=== PATIENT | female | born 1980 | race Caucasian/White ===

== ENCOUNTER 2021-06-16 11:45 | Day surgery (SDC) | payer BC ==
[2021-06-12 11:12] VITALS: BMI 29.0
[~2021-06-16 11:45] MED LIST: CLINDAMYCIN 900 MG in DEXTROSE 5% IN WATER 50 ML IVPB PRN; DEXAMETHASONE SOD PHOSPHATE 4 MG/ML 1 ML VIAL IV ONE; GENTAMICIN 340 MG in SODIUM CHLORIDE 0.9% 100 ML IVPB PRN; HEPARIN SODIUM,PORCINE/PF 5,000 UNIT/0.5 ML SYRINGE SQ PRN; HYDROmorphone 0.5 MG/0.5 ML SYRINGE IVP PRN; LACTATED RINGERS 1,000 ML IV SCH
[2021-06-16] MEDS ORDERED: LIDOCAINE 1% (10MG/ML) FOR IV START INTRADERMA ONE (12:32)
[2021-06-16] MEDS: ONDANSETRON 4 MG/2 ML VIAL IVP ONE ×2 (12:33→14:43)
[2021-06-16 12:47] LABS: HCT 42.1 % (34.0-46.0); HGB 14.2 gm/dL (11.4-16.0); MCH 30.9 pg (25.0-35.0); MCHC 33.8 g/dL (31.0-37.0); MCV 91.4 fL (80.0-100.0); Mean Platelet Volume 7.9; Platelet Count 254 k/uL (150-450); RBC 4.61 m/uL (3.80-5.40); RDW 12.2 % (11.5-15.5); WBC 6.9 k/uL (3.8-10.6)
[2021-06-16] MEDS ORDERED: GLYCOPYRROLATE 0.2 MG/ML 2 ML VIAL ONE (13:07)
[2021-06-16] MEDS ORDERED: PROPOFOL 10 MG/ML 20 ML VIAL IV ONE (13:07)
[2021-06-16] MEDS ORDERED: NEOSTIGMINE 1 MG/ML 10 ML VIAL ONE (13:07)
[2021-06-16] MEDS ORDERED: KETAMINE 10 MG/ML 20 ML VIAL ONE (13:07)
[2021-06-16] MEDS ORDERED: KETOROLAC 15 MG/ML 1 ML VIAL ONE (13:07)
[2021-06-16] MEDS ORDERED: ROCURONIUM 10 MG/ML (5 ML VIAL) IV ONE (13:07)
[2021-06-16] MEDS ORDERED: LIDOCAINE 1% INJ 10MG/ML (20 ML MDV) ONE (13:07)
[2021-06-16] MEDS ORDERED: .fentaNYL (PF) 50 MCG/ML 2 ML AMP ONE (13:07)
[2021-06-16] MEDS ORDERED: INDOCYANINE GREEN 25 MG VIAL IV ONE (13:07)
[2021-06-16] MEDS ORDERED: MIDAZOLAM 2 MG/2 ML VIAL ONE (13:07)
[2021-06-16] MEDS ORDERED: SUCCINYLCHOLINE CHLORIDE 100 MG/5 ML SYR IV ONE (13:07)
[2021-06-16] MEDS ORDERED: BUPIVACAIN-EPI 0.25%-1:200,000 30 ML VIAL SQ ONE ×2 (13:24)
--- NOTE | 2021-06-16 14:14 | P.OP ---
Date of Procedure: 06/16/21 Preoperative Diagnosis: Symptomatic cholelithiasis Postoperative Diagnosis: Symptomatic cholelithiasis Procedure(s) Performed: Robotic cholecystectomy Anesthesia: RUBEN Surgeon: Rodolfo Harmon Pathology: other (Gallbladder and contents) Condition: stable Disposition: same day Indications for Procedure: 41-year-old female with symptoms of cholelithiasis presents for elective cholecystectomy. She has been having some right upper quadrant pain. Ultrasound did reveal a significant sized gallstone. Risks, benefits and alternatives were provided to the patient and she did provide consent prior to attending the operating suite. Operative Findings: Cholelithiasis Description of Procedure: The patient was brought to the operating suite and placed in supine position on the operating table. Sedation was provided by anesthesia and the patient underw ent endotracheal intubation. The patient was then prepped and draped in regular sterile fashion. An infraumbilical incision was made and dissection was carried to the fascia. The fascia was incised and an 8 mm trocar was placed. Pneumoperitoneum was achieved. Robotic scope was then placed and the gallbladder was visualized in the right upper quadrant. 3 additional 8 mm ports were placed. 2 were placed in the right lower quadrant and one was placed in the left lower quadrant. The robot was then docked and the instruments were placed. The gallbladder was grasped and retracted and dissection was carried to free the cystic duct from surrounding peritoneal attachments. Cystic duct was confirmed using ICG technology. The cystic duct was skeletonized. 2 closer placed proximally one was placed distally and the cystic duct was ligated. Additional dissection was carried to skeletonize the cystic artery. 2 clips placed proximally one was laced distally and the cystic artery was ligated. Cautery was then used to dissect the gallbladder from the gallbladder fossa on the liver bed. Hemostasis was noted on the liver bed. The gallbladder was then placed in an Endo Catch bag and removed from the abdomen from the periumbilical incision site. On further exam of the liver bed, hemostasis was noted to be maintained. No bile leakage was noted. The infraumbilical fascia was then c losed using interrupted 0 Vicryl suture under direct visualization using a Melo-Wes device. Pneumoperitoneum was then released and all ports removed from the abdomen. All skin incisions were then closed with 4-0 Vicryl subcuticular suture. Sponge and instrument count were correct 2 according to our personnel. Patient was then taken to postanesthesia care unit in stable condition.
[2021-06-16 14:25] VITALS: TEMP 97.3
[2021-06-16] MEDS ORDERED: LACTATED RINGERS 1,000 ML IV ONE (14:51)
[2021-06-16 15:22] VITALS: PULSE 78
[2021-06-16 15:40] VITALS: BP 127/78; RESP 18
== END 2021-06-16 16:01 | disposition home or self-care (01) ==
LOC: OR 11:45
PROVIDERS: ATTEND Surgery
DX: K80.20 Calculus of gallbladder without cholecystitis without obstruction (principal)
CPT/HCPCS: 47600; S2900; 85027; 88304

== ENCOUNTER → 2022-07-21 | Outpatient (CLI) | payer BC ==
--- NOTE | 2022-07-22 11:06 | CT ---
EXAMINATION TYPE: CT abdomen pelvis w con CT DLP: 1041.30 mGycm, Automated exposure control for dose reduction was used. 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 pt had gallbladder removed over a year ago and has pain since TECHNIQUE: Axial CT of the abdomen and pelvis. Sagittal and coronal reformats were created on a [employer] workstation. Contrast used:100 mL of Isovue 300 with IV Contrast, Oral contrast used: with Oral Contrast FINDINGS: LOWER CHEST: Unremarkable ABDOMEN LIVER: Unremarkable GALLBLADDER AND BILE DUCTS: The gallbladder is surgically absent. PANCREAS: Unremarkable. SPLEEN: Unremarkable. ADRENAL GLANDS: Unremarkable. KIDNEYS AND URETERS: No evidence for renal calculus. There is moderate hydroureteronephrosis on the l eft which extends underneath the pelvis the distal portion is not definitively visualized. No evidenc e of right obstructive uropathy or renal calculus. PELVIS BLADDER: Unremarkable REPRODUCTIVE: The ovaries are medialized and abutting each other with follicle/cysts bilaterally luz uring up to 2.9 cm on the right and 3.7 cm ABDOMEN & PELVIS STOMACH AND BOWEL: No evidence of bowel obstruction. The appendix is normal. PERITONEUM/RETROPERITONEUM: No evidence of pneumoperitoneum or free fluid. Inflamed epiploic appendag e just above the bladder measuring up to 19 x 10 mm. . VASCULATURE: No evidence of aortic aneurysm. MUSCULOSKELETAL: No acute osseous abnormalities LYMPH NODES: No gross evidence for lymphadenopathy. SOFT TISSUE/ABDOMINAL WALL: Fat-containing buccal hernia. IMPRESSION: 1. No evidence for acute upper quadrant process to explain the patient's pain. 2. Mild left hydroureteronephrosis without definitive obstructing calculus. Consider further evaluati on with CT urogram. Consider comparisons with outside institution if available for chronicity. 3. Medialized/kissing ovaries with cysts which can be seen in setting of endometriosis.
== END | disposition home or self-care (01) ==
LOC: RADCTMAIN 15:54
PROVIDERS: ATTEND Family Medicine
DX: K57.92 Diverticulitis of intestine, part unspecified, without perforation or abscess without bleeding (principal); N13.30 Unspecified hydronephrosis; N83.202 Unspecified ovarian cyst, left side; N83.201 Unspecified ovarian cyst, right side
CPT/HCPCS: 74177; Q9967 ×2

== ENCOUNTER 2023-06-08 11:21 | Day surgery (SDC) | payer BC ==
[~2023-06-08 11:21] MED LIST changes: -CLINDAMYCIN 900 MG in DEXTROSE 5% IN WATER 50 ML IVPB PRN; -DEXAMETHASONE SOD PHOSPHATE 4 MG/ML 1 ML VIAL IV ONE; -GENTAMICIN 340 MG in SODIUM CHLORIDE 0.9% 100 ML IVPB PRN; -HEPARIN SODIUM,PORCINE/PF 5,000 UNIT/0.5 ML SYRINGE SQ PRN; -HYDROmorphone 0.5 MG/0.5 ML SYRINGE IVP PRN; +LIDOCAINE 1% (10MG/ML) FOR IV START INTRADERMA PRN
[2023-06-08] MEDS ORDERED: PROPOFOL 10 MG/ML 20 ML VIAL IV ONE (12:45)
[2023-06-08] MEDS ORDERED: ONDANSETRON 4 MG/2 ML VIAL ONE (12:45)
[2023-06-08] MEDS ORDERED: LIDOCAINE 1% INJ 10MG/ML (20 ML MDV) ONE (12:45)
--- NOTE | 2023-06-08 13:05 | P.PCN ---
Date of Procedure: 06/08/23 Procedure(s) Performed: BRIEF HISTORY: Patient is a 43-year-old pleasant white female scheduled for an elective colonoscopy as a part of change in bowel habits PROCEDURE PERFORMED: Colonoscopy with cold biopsy. PREOPERATIVE DIAGNOSIS: Change in bowel habits. IV sedation per Anesthesia. PROCEDURE: After informed consent was obtained, the patient, was brought into the endoscopy unit. IV sedation was administered by Anesthesia under continuous monitoring. Digital rectal examination was normal. Initially the Olympus CF-160 flexible video colonoscope was then inserted in the rectum, gradually advanced into the cecum without any difficulty. Careful examination was performed as the scope was gradually being withdrawn. Ileocecal valve and the appendiceal orifice were visualized and appeared normal. Prep was excellent. Mucosa of the cecum, ascending colon, appeared normal. The transverse colon there was a 3 mm sessile polyp removed by cold biopsy. Rest of the transverse colon, descending colon, sigmoid colon, and rectum appeared normal. Retroflexion was performed in the rectum and no lesions were seen. The patient tolerated the procedure well. IMPRESSION: 3 mm transverse colon polyp status post cold biopsy Rest of the colon appeared normal RECOMMENDATIONS: Findings of this examination were discussed with the patient as well as her family. she was advised to follow with the biopsy results. If the biopsy result adenoma she can have a repeat colonoscopy in 5 years..
[2023-06-08 13:28] VITALS: BP 127/89; PULSE 98; RESP 16
== END 2023-06-08 14:10 | disposition home or self-care (01) ==
LOC: ORWHC2ENDO 11:21
PROVIDERS: ATTEND Internal Medicine Gastroenterology
DX: D12.3 Benign neoplasm of transverse colon (principal); I10 Essential (primary) hypertension; E78.5 Hyperlipidemia, unspecified; J45.909 Unspecified asthma, uncomplicated; Z79.51 Long term (current) use of inhaled steroids; Z79.899 Other long term (current) drug therapy
CPT/HCPCS: 88305; 45380; J2405; J2001; J2704

== ENCOUNTER → 2025-01-24 | Outpatient (CLI) | payer BC ==
--- NOTE | 2025-01-24 22:43 | CT ---
EXAMINATION TYPE: CT abdomen pelvis wo con DATE OF EXAM: 01/24/2025 12:43 PM COMPARISON: 07/21/2022 CLINICAL INDICATION: Female, 44 years old with history of K43.9 VENTRAL HERNIA WITHOUT OBSTRUCTION OR GANGRE, pain under right rib cage TECHNIQUE: Axial images were obtained from above the diaphragm to the pubic rami in the axial plane a t 5 mm thick sections. Reconstructed images are reviewed on the computer in the coronal plane. CONTRAST: mL of . Study performed with Oral Contrast DLP: 862 mGycm, Automated exposure control for dose reduction was used. FINDINGS: Limited CT sections are obtained the lung bases. The lung bases are clear. CT ABDOMEN: There is a small periumbilical hernia with mesenteric fat. No loops of bowel are involved . Liver: Normal Spleen: Normal Pancreas: Normal Adrenal glands: The adrenal glands are normal. Gallbladder: Normal Kidneys: No masses are evident. No hydronephrosis is present. No cysts are present. 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 Findings present previously and appears stable. Aorta: Normal Inferior vena cava: Normal. CT PELVIS: Loops of bowel within the abdomen and pelvis are normal. There are loops of bowel lacking oral co ntrast are incompletely distended limiting bowel evaluation. Appendix: Normal as visualized. Urinary bladder: Normal. Genitourinary structures: Uterus is normal. Adnexa are unremarkable. No free fluid is within the pelv is. Osseous structures: No suspicious lytic or sclerotic lesions. IMPRESSION: 1. No suspicious anterior abdominal wall hernia. Small periumbilical hernia may be present. [facility], , 01/24/2025 10:40 PM
== END | disposition home or self-care (01) ==
LOC: RADCTMAIN 10:50
PROVIDERS: ATTEND Family Medicine
DX: K43.9 Ventral hernia without obstruction or gangrene (principal)
CPT/HCPCS: 74176